=== PATIENT | male | born 1950 | race Caucasian/White ===

== ENCOUNTER 2017-09-10 00:03 | Emergency (ER) | payer MEDICARE, OTHER ==
[2017-09-10 12:30] LABS: BEDSIDE GLUCOSE 95 MG/DL (80-115)
== END 2017-09-10 02:01 | disposition left against medical advice (07) ==
LOC: M ED 00:03
DX: I10 Essential (primary) hypertension (principal); Z53.21 Procedure and treatment not carried out due to patient leaving prior to being seen by health care provider
CPT/HCPCS: 99281

== ENCOUNTER 2021-05-21 17:06 | Emergency (ER) | payer MEDICARE, OTHER ==
[~2021-05-21] VITALS: Ht 177.8 cm; Wt 94.8 kg
[~2021-05-21 17:06] MED LIST: ACET500T15 PO; ALBU83IN INH; ATOR80TA59 PO; DOCU240C9 PO; FERR1TAB8 PO; FLUO20CA20 PO; FLUT1LOT EX; INSULANT SC; LISI20TA33 PO; METF500T13 PO; METO1TAB32 PO; MULTLIQ7 PO; NEUR100C PO; OMEP10CASR PO; SFHGLU4TA PO; SYMB16INH INH; TEAR1SOL3 OU
--- OUTSIDE RECORDS SUMMARY | 2021-05-21 17:12 | CCD ---
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 Name Role Phone Walter Verduzco MD Unavailable Unavailable Walter Verduzco MD Unavailable Unavailable Walter Verduzco MD Unavailable Unavailable Walter Verduzco MD Unavailable Unavailable Walter Verduzco MD Unavailable Unavailable Walter Verduzco MD Unavailable Unavailable Walter Verduzco MD Unavailable Unavailable Walter Verduzco MD Unavailable Unavailable Walter Verduzco MD Unavailable Unavailable Walter Verduzco MD Unavailable Unavailable Walter Verduzco MD Unavailable Unavailable Walter Verduzco MD Unavailable Unavailable Walter Verduzco MD Unavailable Unavailable Walter Verduzco MD Unavailable Unavailable Walter Verduzco MD Unavailable Unavailable Walter Verduzco MD Unavailable Unavailable Walter Verduzco MD Unavailable Unavailable Walter Verduzco MD Unavailable Unavailable Walter Verduzco MD Unavailable Unavailable Walter Verduzco MD Unavailable Unavailable Waltre Verduzco MD Unavailable Unavailable Walter Verduzco MD Unavailable Unavailable Walter Verduzco MD Unavailable Unavailable Walter Verduzco MD Unavailable Unavailable Walter Verduzco MD Unavailable Unavailable Re-disclosure Warning The records that you are about to access may contain information from federally-assisted alcohol or drug abuse programs. If such information is present, then the following federally mandated warning applies: This information has been disclosed to you from records protected by federal confidentiality rules (42 CFR part 2). The federal rules prohibit you from making any further disclosure of this information unless further disclosure is expressly permitted by the written consent of the person to whom it pertains or as otherwise permitted by 42 CFR part 2. A general authorization for the release of medical or other information is NOT sufficient for this purpose. The Federal rules restrict any use of the information to criminally investigate or prosecute any alcohol or drug abuse patient.The records that you are about to access may contain highly sensitive health information, the redisclosure of which is protected by Article 27-F of the [facility] Public Health law. If you continue you may have access to information: Regarding HIV / AIDS; Provided by facilities licensed or operated by the [facility] Office of Mental Health; or Provided by the [facility] Office for People With Developmental Disabilities. If such information is present, then the following [facility] mandated warning applies: This information has been disclosed to you from confidential records which are protected by state law. State law prohibits you from making any further disclosure of this information without the specific written consent of the person to whom it pertains, or as otherwise permitted by law. Any unauthorized further disclosure in violation of state law may result in a fine or mcc sentence or both. A general authorization for the release of medical or other information is NOT sufficient authorization for further disc losure. Family History Family Member Name Family Member Gender Family Member Status Date o f Status Description Data Source(s) Unknown Unknown Problem [facility] ([facility]) Unknown Unknown Problem [facility] ([facility]) Encounters Encounter Providers Location Date Indications Data Source(s ) Outpatient Attender: Kaycee Verduzco MD 0 09/25/2020 08:19:35 AM EST - 09/25/2020 08:44:31 AM EST [facility] ([facility]) Immunizations Vaccine Date Status Description Data Source(s) INFLUENZA VACCINE QUADRIVALENT (65 YR UP)/MF59 C.1/PF 05/03/2020 12:00:00 AM EDT completed [facility] Medications Medication Brand Name Start Date Product Form Dose Route Admi nistrative Instructions Pharmacy Instructions Status Indications Reaction Description Data Source(s) 250 mg 09/25/2020 12:00:00 AM EST tablet 6 TAKE TWO TABLETS BY MOUTH ON DAY 1. THEN TAKE 1 TABLET BY MOUTH ON DAYS 2-5 TAKE TWO TABLETS BY MOUTH ON DAY 1. THEN TAKE 1 TABLET BY MOUTH ON DAYS 2-5 SOLD: 09/25/2020 [facility] 20 mg 09/25/2020 12:00:00 AM EST tablet 10 TAKE ONE TABLET BY MOUTH TWICE A DAY FOR 5 DAYS TAKE ONE TABLET BY MOUTH TWICE A DAY FOR 5 DAYS SOLD: 2020 [facility] 50 mcg/actuation 09/25/2020 12:00:00 AM EST spray,suspension 16 INSTILL TWO SPRAYS INTRANASALLY ONCE A DAY INSTILL TWO SPRAYS INTRANASALLY ONCE A DAY SOLD: 09/25/2020 [facility] 90 mcg/actuation 09/25/2020 12:00:00 AM EST HFA aerosol inha ler 8 INHALE 1-2 PUFFS BY MOUTH EVERY 4 HOURS NEEDED FOR WHEEZING INHALE 1-2 PUFFS BY MOUTH EVERY 4 HOURS NEEDED FOR WHEEZING SOLD: 09/25/2020 [facility] Insurance Providers Payer name Policy type / Coverage type Policy ID Covered democrat ID Covered democrat's relationship to gardiner Policy Gardiner Plan Information Esis Workers Compensation [id number] Self [employer] Workers Compensation [id number] Self AETNA MEDICARE COMPLETE G [id number] Self [id number] [place]/ [id number] Self [id number] Aetna Ppo/Pos/Nap/MC Medigap Part B [id number] Self Medicare Natl Gov't Servi Medicare Primary [id number] Self Aetna Health Care Medigap Part B [id number] Self [place] CLAIMS O [id number] S [id number] MEDICARE C [id number] S [id number] A AETNA HEALTHCARE [place] O [id number] S [id number] [place] P [id number] S [id number] [place] S [id number] S [id number] MEDFOCUS P [id number] S [id number] AETNA [place]ARE [place] [id number] SP [id number] MEDICARE [id number] SP [id number] A [place]ETNA [place] [id number] SP [id number] A[place] HEALTHCARE [place] [id number] SP [id number] Problems, Conditions, and Diagnoses No Information Surgeries/Procedures No Information Results ID Date Data Source [id number] 12/22/2020 12:00:00 AM EDT [facility] Name Value Range Interpretation Code Description Data Lisa rce(s) Supporting Document(s) SARS-CoV-2 (COVID-19) RNA [Presence] in Nasopharynx by ERIK with non-probe detection Negative [facility] This lab was ordered by [facility] and reported by [facility]. ID Date Data Source [id number] 09/26/2020 07:50:00 AM EST [facility] Name Value Range Interpretation Code Description Data Lisa rce(s) Supporting Document(s) [facility]HD COVID-19 RT-PCR SWITCH COUPLER SWAB Not Detected Not Detected [facility] This test has received Emergency Use Aut horization (EUA). We willcontinue to follow federal and state requirements for COVID-19reporting. This test was developed and its performance characteristicsdetermined by [facility]. It has not been cleared orapproved by the U.S. Food and Drug Administration but has been givenemergency use authorization. Results should be used in conjunctionwith clinical findings and should not form the sole basis for adiagnosis or treatment decision. Methods: SARS-CoV-2 Multiplex RT-PCRAssayA not detected (negative) test result for this test means that SARS-CoV-2 RNA was not present in the specimen above the limit ofdetection. Laboratory test results should always be considered in thecontext of clinical observations and epidemiological data in making afinal diagnosis and patient management decisions. Results will bereported to government agencies as required. ID Date Data Source [id number] 09/25/2020 12:00:00 AM EST [facility] Name Value Range Interpretation Code Description Data Lisa rce(s) Supporting Document(s) SARS coronavirus 2 RNA [Presence] in Res piratory specimen by ERIK with probe detection NEGATIVE [facility] This lab was ordered by [facility] and reported by [facility]. ID Date Data Source [id number] 07/12/2020 12:00:00 AM EST [facility] Name Value Range Interpretation Code Description Data Lisa rce(s) Supporting Document(s) SARS coronavirus 2 RNA [Presence] in Res piratory specimen by ERIK with probe detection [facility] and reported by [facility]. Procedure Social History No Information
[2021-05-21 18:16] LABS: BASO % 0.6 % (0.0-1.0); EOS # 0.3 10^3/uL (0.0-0.5); HEMATOCRIT 30.9 % (42.0-52.0); HEMOGLOBIN 10.5 g/dl (13.5-17.5); LYMPH # 1.7 10^3/uL (1.5-5.0); LYMPH % 26.9 % (24.0-44.0); MEAN CORPUSCULAR HEMOGLOBIN 30.1 pg (27.0-33.0); MEAN CORPUSCULAR VOLUME 88.5 fl (80.0-96.0); MONO # 0.6 10^3/uL (0.0-0.8); MONO % 9.7 % (2.0-8.0); NEUTROPHILS # 3.5 10^3/uL (1.5-8.5); NEUTROPHILS % 57.5 % (36.0-66.0); PLATELET COUNT, AUTOMATED 155 10^3/uL (150-450); RED BLOOD COUNT 3.49 10^6/uL (4.30-6.10); WHITE BLOOD COUNT 6.2 10^3/uL (4.0-10.0)
[2021-05-21 18:44] LABS: ALBUMIN 3.4 GM/DL (3.2-5.2); ALT/SGPT 48 U/L (12-78); BILIRUBIN,DIRECT < 0.1 MG/DL (0.0-0.2); BILIRUBIN,TOTAL 0.4 MG/DL (0.2-1.0); BLOOD UREA NITROGEN 34 MG/DL (7-18); CALCIUM LEVEL 8.8 MG/DL (8.8-10.2); CARBON DIOXIDE LEVEL 27 MEQ/L (21-32); CHLORIDE LEVEL 108 MEQ/L (98-107); GLOMERULAR FILTRATION RATE 37.4 (>42); GLUCOSE, FASTING 103 MG/DL (70-100); LIPASE 151 U/L (73-393); POTASSIUM SERUM 4.8 MEQ/L (3.5-5.1); SODIUM LEVEL 140 MEQ/L (136-145); TOTAL PROTEIN 7.7 GM/DL (6.4-8.2)
--- OUTSIDE RECORDS SUMMARY | 2021-05-21 19:35 | CCD ---
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 If you continue you may have access to information: Regarding HIV / AIDS; Provided by facilities licensed or operated by the [facility] Office of Mental Health; or Provided by the [facility] Office for People With Developmental Disabilities. If such information is present, then the following [facility] mandated warning applies: This information has [...] law may result in a fine or residential sentence or both. A general authorization for [...] EST - 09/25/2020 08:44:31 AM EST [facility] ([facility]) Immunizations Vaccine Date [...] type / Coverage type Policy ID Covered libertarian ID Covered libertarian's relationship to gardiner Policy Gardiner Plan Information E[employer] Workers Compensation [id number] Self [employer] Workers Compensation [id number] Self AETNA MEDICARE COMPLETE G [id number] [place] [id number] [place]/ [id number] Self [id number] Aetna Ppo/Pos/[place]ap/[place] Medigap Part B [id number] Self Medicare [place] Gov't Servi Medicare Primary [id number] Self Aetna Health Care Medigap Part B [id number] Self [place] CLAIMS O [id number] S [id number] MEDICARE C [id number] S [id number] A A[place]ALTHCARE [place] O [id number] S [id number] [place] P [id number] S [id number] ES[place] S [id number] S [id number] MEDFOCUS P [id number] S [id number] [place]ETNA [place] [id number] SP [id number] MEDICARE [id number] SP [id number] A AETNA [place] [id number] SP [id number] AETNA HEALTHCARE [place] [id number] SP [id number] Problems, Conditions, and Diagnoses No Information Surgeries/Procedures No Information Results ID Date Data Source [id number] 12/22/2020 12:00:00 AM EDT [facility] Name Value Range Interpretation Code Description Data Lisa rce(s) Supporting Document(s) SARS-CoV-2 (COVID-19) RNA [Presence] in Nasopharynx by ERIK with non-probe detection Negative [facility] This lab was ordered by [facility] and reported by [facility]. ID Date Data Source [id number] 09/26/2020 07:50:00 AM EST [facility] Name Value Range Interpretation Code Description Data Lisa rce(s) Supporting Document(s) [facility] COVID-19 RT-PCR SUPERVISOR OF WAY SWAB Not Detected Not Detected [facility] This test has received Emergency Use Aut horization (EUA). We willcontinue to follow federal and state requirements for COVID-19reporting. This test was developed and its performance characteristicsdetermined by [facility]. It has not been cleared orapproved by [...] agencies as required. ID Date Data Source [id number] 09/25/2020 12:00:00 AM EST [facility] Name Value Range Interpretation Code Description Data Lisa rce(s) Supporting Document(s) SARS coronavirus 2 RNA [Presence] in Res piratory specimen by ERIK with probe detection NEGATIVE [facility] This lab was ordered by [facility] and reported by [facility]. ID Date Data Source [id number] 07/12/2020 12:00:00 AM EST [facility] Name Value Range Interpretation Code Description Data Lisa rce(s) Supporting Document(s) SARS coronavirus 2 RNA [Presence] in Res piratory specimen by ERIK with probe detection [facility] by [facility]. Procedure Social History No Information
[2021-05-21 20:15] VITALS: BP 121/67
--- NOTE | 2021-05-22 18:58 | ECGEPIP ---
[facility] - ED Test Date: 2021-05-21 Pat Name: CIARAN LANTIGUA Department: Room: - Gender: Male Bed Laster: AK : [id number] Requested By: QUINTEN Weller PA-C Order Number: [id number] Reading MD: Cristel Ziegler Measurements Intervals [place] Rate: 70 P: 55 MT: 156 QRS: 62 QRSD: 90 T: 53 QT: 386 QTc: 416 Interpretive Statements Normal sinus rhythm with sinus arrhythmia similar 10/15/15 Electronically Signed on 05-22-2021 18:57:32 EDT by Cristel Ziegler
== END 2021-05-21 20:16 | disposition home or self-care (01) ==
LOC: M ED 17:06
DX: E11.9 Type 2 diabetes mellitus without complications (principal); I13.10 Hypertensive heart and chronic kidney disease without heart failure, with stage 1 through stage 4 chronic kidney disease, or unspecified chronic kidney disease; N18.30 Chronic kidney disease, stage 3 unspecified; J45.909 Unspecified asthma, uncomplicated; E78.5 Hyperlipidemia, unspecified; Z79.899 Other long term (current) drug therapy; Z79.4 Long term (current) use of insulin

== ENCOUNTER → 2022-10-15 | Outpatient (CLI) | payer MEDICARE, OTHER ==
[~2022-10-15] MED LIST changes: +ALBU2.5V10 INH; -ALBU83IN INH; +FLUO-96 PO; -FLUO20CA20 PO; +JARD1TAB3 PO; +PANT20TA6 PO
== END ==
LOC: M LABSMTC 10:27
PROVIDERS: ATTEND Anesthesiology
DX: Z01.818 Encounter for other preprocedural examination (principal)

== ENCOUNTER → 2022-12-04 | Day surgery (SDC) | payer OTHER ==
[~2022-12-04] VITALS: Ht 177.8 cm; Wt 94.8 kg
[~2022-12-04] MED LIST changes: +ACET1TAB55 PO; +AMLO1TAB25 PO; +ARTIFICAL TEARS OU; +ASPI81TA26 PO; +CHLO125TA PO; +CYCL5TAB PO; +FLOM0.4C39 PO; +GABA-282 PO; +LIDOCAINE 2% 100MG/5ML SDV (FOR ANES.) As Ordered ONE; +NS 1,000 ML IV ONE; +fentaNYL 100 MCG/2 ML INJECTION As Ordered ONE; +propofoL 200 MG/20 ML VIAL As Ordered ONE
[2022-12-04 09:35] VITALS: BP 135/75
== END | disposition home or self-care (01) ==
LOC: M OPP 07:02
PROVIDERS: ATTEND Internal Medicine Gastroenterology
DX: Z12.11 Encounter for screening for malignant neoplasm of colon (principal); Z86.010 Personal history of colon polyps; D12.2 Benign neoplasm of ascending colon; D12.4 Benign neoplasm of descending colon; K57.30 Diverticulosis of large intestine without perforation or abscess without bleeding; K64.8 Other hemorrhoids; R13.10 Dysphagia, unspecified; R12 Heartburn; G47.33 Obstructive sleep apnea (adult) (pediatric); Z79.02 Long term (current) use of antithrombotics/antiplatelets; Z79.4 Long term (current) use of insulin; Z79.51 Long term (current) use of inhaled steroids; Z79.82 Long term (current) use of aspirin; Z79.891 Long term (current) use of opiate analgesic; Z79.899 Other long term (current) drug therapy
CPT/HCPCS: 43235; 45385; 88305; J3010